=== PATIENT | male | born 1940 ===

== ENCOUNTER 2016-11-21 18:32 | Emergency (ER) | payer MEDICARE, OTHER ==
[2016-11-21] MEDS ORDERED: NORCO 5/3251 TAB PO (20:12)
== END 2016-11-21 20:42 ==
LOC: EDMED 18:32
PROC: 2W3EXYZ Immobilization of Right Hand using Other Device (ICD-10-PCS; principal; 2016-11-21)
DX: S63.501A Unspecified sprain of right wrist, initial encounter (principal); I10 Essential (primary) hypertension; E78.5 Hyperlipidemia, unspecified; W19.XXXA Unspecified fall, initial encounter; Y92.009 Unspecified place in unspecified non-institutional (private) residence as the place of occurrence of the external cause